=== PATIENT | female | born 1940 | race Caucasian/White ===

== ENCOUNTER 2017-05-05 16:03 | Emergency (ER) | payer MEDICARE, OTHER ==
[2017-05-05 16:46] VITALS: BP 119/64
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
== END 2017-05-05 17:15 | disposition short-term general hospital (02) ==
LOC: UCEAST 16:03
DX: R55 Syncope and collapse (principal); R10.10 Upper abdominal pain, unspecified; M25.532 Pain in left wrist; S00.81XA Abrasion of other part of head, initial encounter; Z87.891 Personal history of nicotine dependence; V47.5XXA Car driver injured in collision with fixed or stationary object in traffic accident, initial encounter; Y92.9 Unspecified place or not applicable
CPT/HCPCS: 99212; G0463

== ENCOUNTER 2017-05-05 18:35 | Observation (INO) | payer OTHER ==
[2017-05-05] MEDS ORDERED: Tetan/Diph/Pertus SYR(Tdap)* 0.5 ML SYR(BOOSTRIX) use SYR IM ONE (20:32)
[2017-05-05 20:35] LABS: Hematocrit 30 % (35-47); Hemoglobin 10.2 g/dl (12.0-16.0); Mean Corpuscular HGB Conc 34 g/dl (31-36); Mean Corpuscular Hemoglobin 29 pg (27-31); Mean Corpuscular Volume 85 fL (80-97); Mean Platelet Volume 8 um3 (7.4-10.4); Red Blood Count 3.57 10^6/ul (4.0-5.4); Red Cell Distribution Width 14 % (10.5-15); White Blood Count 8.5 10^3/ul (3.5-10.8)
[2017-05-05 20:39] LABS: Urine Bacteria 1+ (Absent); Urine Bilirubin Negative (Negative); Urine Glucose Negative (Negative); Urine Nitrite Negative (Negative)
[2017-05-05 20:50] LABS: BUN/Creatinine Ratio 12.1 (8-20); EGFR Non-African American 87.5 (>60); Potassium 3.9 mmol/L (3.5-5.0)
[2017-05-05 20:51] LABS: Albumin 3.8 g/dL (3.2-5.2); Calcium 8.8 mg/dL (8.6-10.3); EGFR African American 112.6 (>60); Globulin 3.1 g/dL (2-4); Total Bilirubin 0.4 mg/dL (0.2-1.0); Total Protein 6.9 g/dL (6.4-8.9)
[2017-05-05 20:52] LABS: Troponin I 0.01 ng/mL (<0.04)
[2017-05-05] MEDS ORDERED: Iohexol 300* (CONTRAST) 10 ML SDV IV ONE (20:55)
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
[2017-05-05] MEDS ORDERED: cefTRIAXone(*) 1 GM in NS 0.9% 50 ML* 50 ML IVPB ONE (22:03)
[2017-05-06] MEDS ORDERED: Ondansetron INJ* 2 MG/ML VIAL IV PRN (03:11)
[2017-05-06] MEDS ORDERED: Melatonin (NF) 3 MG TAB PO PRN (03:11)
[2017-05-06] MEDS ORDERED: Acetaminophen TAB* 325 MG PO PRN (03:11)
[2017-05-06] MEDS ORDERED: NS 0.9% 1000 ML* 1,000 ML IV SCH (03:15)
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
[2017-05-06] MEDS ORDERED: Omeprazole CAP* 20 MG PO SCH (06:00)
[2017-05-06 06:48] LABS: Hematocrit 31 % (35-47); Hemoglobin 10.4 g/dl (12.0-16.0); Mean Corpuscular HGB Conc 34 g/dl (31-36); Mean Corpuscular Hemoglobin 29 pg (27-31); Mean Corpuscular Volume 84 fL (80-97); Mean Platelet Volume 8 um3 (7.4-10.4); Red Blood Count 3.65 10^6/ul (4.0-5.4); Red Cell Distribution Width 14 % (10.5-15); White Blood Count 6.9 10^3/ul (3.5-10.8)
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
[2017-05-06] MEDS ORDERED: Donepezil TAB* 5 MG PO SCH (09:00)
[2017-05-06] MEDS ORDERED: Docusate CAP* 100 MG PO SCH (09:00)
[2017-05-06 10:48] VITALS: BP 134/74
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
[2017-05-06] MEDS ORDERED: Atorvastatin* 10 MG TAB PO SCH (18:00)
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
== END 2017-05-06 11:20 | disposition home or self-care (01) ==
LOC: ED 18:35 → MEDTELE 22:51
PROVIDERS: ADMIT Hospitalist; ATTEND Internal Medicine
DX: R55 Syncope and collapse (principal); R07.89 Other chest pain; R10.9 Unspecified abdominal pain; M54.2 Cervicalgia; N39.0 Urinary tract infection, site not specified; I67.82 Cerebral ischemia; M50.30 Other cervical disc degeneration, unspecified cervical region; F03.90 Unspecified dementia, unspecified severity, without behavioral disturbance, psychotic disturbance, mood disturbance, and anxiety; F06.8 Other specified mental disorders due to known physiological condition; S19.9XXA Unspecified injury of neck, initial encounter; V47.5XXA Car driver injured in collision with fixed or stationary object in traffic accident, initial encounter; Y92.410 Unspecified street and highway as the place of occurrence of the external cause
CPT/HCPCS: 36415; 70450; 71260; 72125; 74177; 80053; 81003; 81015; 83605; 83690; 84484; 85025; 85610; 87077; 87086; 87186; 90471; 90715; 93005; 95819; 96365; 96374; 96375; 99284; A9270-GY; G0378; J0696; Q9967